=== PATIENT | male | born 1995 | race Two or more races ===

== ENCOUNTER 2023-06-24 22:40 | Emergency (ER) | payer OTHER ==
[~2023-06-24] VITALS: Ht 185.4 cm; Wt 77.1 kg
[2023-06-24] MEDS ORDERED: 0.9 % SODIUM CHLORIDE 1,000 ML IV SCH (23:30)
[2023-06-24] MEDS ORDERED: KETOROLAC TROMETHAMINE 30 MG VIAL IV ONE (23:30)
[2023-06-24 23:56] LABS: HEMATOCRIT 40.8 % (39.0-48.0); MEAN CELL VOLUME 90.2 fL (80.0-100.00); MEAN CORPUSCULAR HEMOGLOBIN 31.1 pg (27.00-32.0); MEAN CORPUSCULAR HGB CONC 34.4 g/dl (32.0-36.0); PLATELET COUNT 191 K/uL (150-450); RED BLOOD COUNT 4.52 M/uL (4.00-6.00); RED CELL DISTRIBUTION WIDTH 13.2 % (11.5-14.5)
[2023-06-25 00:08] LABS: INR 1.12; PARTIAL THROMBOPLASTIN TIME 27.6 SECONDS (22.0-34.0); PROTHROMBIN TIME 11.7 SECONDS (9.0-11.5)
[2023-06-25 00:15] LABS: ALBUMIN 4.2 gm/dL (3.4-5.0); BILIRUBIN TOTAL 1.63 mg/dL (0.3-1.2); CALCIUM 8.9 mg/dL (8.5-10.1); CREATININE SERUM 1.41 mg/dL (0.70-1.30); GFR 60.76; GLOBULINA 2.8 G/DL (2.4-3.5); POTASSIUM 3.57 mEq/L (3.5-5.1)
[2023-06-25] MEDS ORDERED: KETO10TA2 PO (03:47)
== END 2023-06-25 03:59 ==
LOC: ER 22:41
PROVIDERS: General Practice
DX: S76.911A Strain of unspecified muscles, fascia and tendons at thigh level, right thigh, initial encounter (principal); X58.XXXA Exposure to other specified factors, initial encounter; Y93.9 Activity, unspecified; Y92.9 Unspecified place or not applicable; Y99.9 Unspecified external cause status

== ENCOUNTER → 2023-09-08 | Emergency (ER) | payer OTHER ==
[~2023-09-08] VITALS: Ht 185.4 cm; Wt 81.6 kg
[~2023-09-08] MED LIST: KETO10TA2 PO
== END | disposition left against medical advice (07) ==
LOC: ER
DX: Z53.21 Procedure and treatment not carried out due to patient leaving prior to being seen by health care provider (principal)

== ENCOUNTER 2024-01-23 18:49 | Emergency (ER) | payer OTHER ==
[~2024-01-23] VITALS: Ht 175.3 cm; Wt 72.6 kg
[2024-01-23] MEDS ORDERED: LEVALBUTEROL HCL 1.25 MG/3 ML SOLUTION IH STA (19:38)
[2024-01-23] MEDS ORDERED: IPRATROPIUM BROMIDE 0.5 MG/2.5 ML AMPUL.NEB IH SCH (19:45)
[2024-01-23 19:56] LABS: ABG PH 7.415 (7.35-7.45); ABG PO2 94.1 mmHg (80-100); BASE EXCESS -0.7 mmol/l; BICARBONATE 23.5 mmol/l (23-25); SaO2 97.4 %; Tco2 24.6 mmol/l; allen test SATISFACTORY; o2 21 %; puncture site RADIAL LEFT
[2024-01-23 19:57] LABS: ABG pCO2 37.4 mmHg (35-45)
[2024-01-23 21:14] LABS: D DIMER 0.35 MG/L; PARTIAL THROMBOPLASTIN TIME 27.8 SECONDS (22.0-34.0)
[2024-01-23 21:27] LABS: INR 1.14; PROTHROMBIN TIME 12.3 SECONDS (9.0-11.5)
== END 2024-01-23 22:08 | disposition home or self-care (01) ==
LOC: ER 18:51
PROVIDERS: General Practice
DX: R53.81 Other malaise (principal); F41.9 Anxiety disorder, unspecified; R06.02 Shortness of breath; Z20.822 Contact with and (suspected) exposure to COVID-19